=== PATIENT | female | born 1965 | race Caucasian/White ===

== ENCOUNTER → 2018-02-15 | Outpatient (CLI) | payer BC ==
[2015-07-30 15:57] VITALS: BP 155/66
[~2018-02-15] MED LIST: ALPRAZOLAM0.5 MG PO; BACTRIM DS TAB1 EACH PO; BENADRYL ALLERG25 M2 PO; DESYREL100 MG PO; FLONASE0.05 MG/AC; FLUTICASON0.05 MG/Ac INH; HYZAAR 50-12.1 UDTAB PO; KETOROLAC10 MG PO; LOSARTAN POTASS1 TAB PO; NORCO 325 MG-51 TA1 PO; NORVASC 5MG5 MG/TAB PO; PERCOCET 7.5/321 TA1 PO; SERTRALINE100 MG PO; SIMVASTATIN40 MG PO; SINGULAIR PO; ZOFRAN ODT8 M1 PO; ZYRTEC ALLERGY10 MG PO
== END ==
LOC: MAMMO 15:48
DX: Z12.31 Encounter for screening mammogram for malignant neoplasm of breast (principal)

== ENCOUNTER → 2020-05-13 | Outpatient (CLI) | payer BC ==
[2015-07-30 15:57] VITALS: BP 155/66
== END ==
LOC: MAMMO 04-14 08:30
DX: Z12.31 Encounter for screening mammogram for malignant neoplasm of breast (principal)